=== PATIENT | female | born 1965 | race Caucasian/White ===

== ENCOUNTER → 2016-11-07 | Outpatient (CLI) | payer OTHER ==
[~2016-11-07] MED LIST: ASPEC325 PO; CLB200 PO; OXYSR10 PO; PRLSR20 PO
--- NOTE | 2016-11-07 15:50 | DIAGNOSTIC IMAGING REPORT ---
MRI OF THE BRAIN WITHOUT IV CONTRAST CLINICAL HISTORY: Dizziness. Cognitive impairment. COMPARISON STUDY: No priors. TECHNIQUE: MRI of the brain was performed utilizing various T1 and T2-weighted sequences in the axial, sagittal, and coronal planes. IV contrast was not administered for this examination. FINDINGS: Brain parenchyma: The brain parenchyma is normal in appearance. There is no hemorrhage or mass effect. There is no restricted diffusion to suggest acute ischemia. Miller-white matter differentiation is preserved. No extra-axial fluid collection is seen. The cerebellar tonsils are normal in configuration. Ventricles, sulci, and cisterns: Normal in configuration. Pituitary and sella: Unremarkable. Intracranial vasculature: Normal flow voids are maintained at the skull base. Orbits: The bony orbits are grossly intact. Orbital contents are normal in appearance. Sinuses and mastoids: Clear. Calvarium: Unremarkable. Cervical cord: Partially visualized cervical spinal cord is normal in morphology and signal intensity. IMPRESSION: No acute intracranial abnormality. Electronically signed by: Mayo Trujillo M.D. 11/07/2016 3:49 PM Dictated Date/Time: 11/07/2016 3:46 PM
== END | disposition home or self-care (01) ==
LOC: C.MRIBC 14:41
PROVIDERS: ATTEND Psychiatry & Neurology Neurology
DX: F07.81 Postconcussional syndrome (principal); G44.309 Post-traumatic headache, unspecified, not intractable; R42 Dizziness and giddiness; R41.89 Other symptoms and signs involving cognitive functions and awareness

== ENCOUNTER → 2016-11-18 | Outpatient (CLI) | payer OTHER ==
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
== END | disposition home or self-care (01) ==
LOC: C.CTS 07:43
PROVIDERS: ATTEND Physician Assistant
DX: H93.19 Tinnitus, unspecified ear (principal)

== ENCOUNTER 2017-08-03 13:50 | Emergency (ER) | payer SELFPAY ==
[~2017-08-03] VITALS: Ht 152.4 cm; Wt 86.9 kg
[2017-08-03 14:03] VITALS: TEMP 36.9; Ht 152.4 cm; Wt 86.9 kg
--- NOTE | 2017-08-03 14:45 | DIAGNOSTIC IMAGING REPORT ---
LEFT TIBIA AND FIBULA 2 VIEWS CLINICAL HISTORY: Left leg pain. Fall. FINDINGS: AP and lateral views of the left tibia and fibula are obtained. No prior studies are available for comparison at the time of dictation. The skeletal structures appear well mineralized. No tibial or fibular fracture is seen. Mild arthritic change is present in the knee. The knee and ankle joints appear preserved. Pretibial soft tissue swelling is noted. IMPRESSION: Pretibial soft tissue swelling with no radiographic evidence of left tibial or fibular fracture. Electronically signed by: Mayo Trujillo M.D. 08/03/2017 2:44 PM Dictated Date/Time: 08/03/2017 2:43 PM
--- NOTE | 2017-08-03 14:48 | DIAGNOSTIC IMAGING REPORT ---
L KNEE 3 VIEWS HISTORY: 52 years-old Female L knee/leg pain acute left-sided knee pain COMPARISON: Left tibia and fibula radiographs of same day TECHNIQUE: 3 views of the left knee FINDINGS: Mild marginal spurring about the lateral compartment. Mild joint space narrowing with marginal spurring and subchondral sclerosis involves the medial compartment. There is moderate osteoarthritis of the patellofemoral joint with small joint effusion. No acute fracture or subluxation. No intra-articular loose body. IMPRESSION: 1. Small joint effusion without acute fracture or subluxation. 2. Tricompartmental osteoarthritis, most pronounced within the patellofemoral joint where there is moderate disease. The above report was generated using voice recognition software. It may contain grammatical, syntax or spelling errors. Electronically signed by: Adrien Farfan M.D. 08/03/2017 2:47 PM Dictated Date/Time: 08/03/2017 2:45 PM
[2017-08-03 15:20] VITALS: BP 130/79; PULSE 67; O2SAT 97
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
== END 2017-08-03 15:22 | disposition home or self-care (01) ==
LOC: C.EDB 13:50 → C.EDD 15:22
DX: M25.562 Pain in left knee (principal); M79.605 Pain in left leg; W01.0XXA Fall on same level from slipping, tripping and stumbling without subsequent striking against object, initial encounter; Y92.89 Other specified places as the place of occurrence of the external cause; K21.9 Gastro-esophageal reflux disease without esophagitis; E66.01 Morbid (severe) obesity due to excess calories; M47.816 Spondylosis without myelopathy or radiculopathy, lumbar region